=== PATIENT | male | born 1980 | race Two or more races ===

== ENCOUNTER 2025-04-16 19:59 | Emergency (ER) | payer OTHER ==
[~2025-04-16] VITALS: Ht 172.7 cm; Wt 68.0 kg
[2025-04-16] MEDS ORDERED: LIDOCAINE HCL 1% 10ML VIAL ONE (22:37)
[2025-04-16] MEDS ORDERED: BACITRACIN-NEOMYCIN-POLYMYXIN 0.9 GM PACKET TOP ONE (23:31)
[2025-04-16] MEDS ORDERED: LIDOCAINE HCL 1% 10ML VIAL PERCUT ONE (23:45)
== END 2025-04-17 00:50 | disposition home or self-care (01) ==
LOC: ER 22:21
DX: S01.511A Laceration without foreign body of lip, initial encounter (principal); X83.8XXA Intentional self-harm by other specified means, initial encounter; Y93.89 Activity, other specified; Y92.488 Other paved roadways as the place of occurrence of the external cause; Y99.9 Unspecified external cause status; I10 Essential (primary) hypertension